=== PATIENT | female | born 1965 | race Caucasian/White ===

== ENCOUNTER 2018-10-17 11:59 | Emergency (ER) | payer OTHER ==
[2018-10-17] MEDS ORDERED: DIPH/PERTUSS(ACELL)/TETANUS VAC/PF 0.5 ML SYR (>=10YO) IM ONE ×2 (12:40→15:18)
[2018-10-17] MEDS ORDERED: OXYCODONE-ACETAMINOPHEN 5-325 MG TABLET PO ONE (12:40)
--- NOTE | 2018-10-17 12:45 | ER Document Report ---
ED Medical Screen (RME) - General Chief Complaint: Lip Injury Stated Complaint: LACERATION Time Seen by Provider: 10/17/18 12:37 Mode of Arrival: Ambulatory Information source: Patient Notes: 53-year-old female presents emergency department with a laceration past the vermilion border with maxillary pain. Denies dental pain. Patient reports she tripped and fell against the truck door. Is not sure when her last tetanus was. No change in LOC. I have greeted and performed a rapid initial assessment of this patient. A comprehensive ED assessment and evaluation of the patient, analysis of test results and completion of the medical decision making process will be conducted by additional ED providers. Dictation of this chart was performed using voice recognition software; therefore, there may be some unintended grammatical errors. - Related Data Allergies/Adverse Reactions: Penicillins Allergy (Verified 10/17/18 12:03) Physical Exam - Vital signs Vitals: Temp Pulse Resp BP Pulse Ox 97.4 F 68 18 137/75 H 98 10/17/18 12:04 10/17/18 12:04 10/17/18 12:04 10/17/18 12:04 10/17/18 12:04 Course - Vital Signs Vital signs: Temp Pulse Resp BP Pulse Ox 97.4 F 68 18 137/75 H 98 10/17/18 12:04 10/17/18 12:04 10/17/18 12:04 10/17/18 12:04 10/17/18 12:04
--- NOTE | 2018-10-17 13:23 | RADIOLOGY REPORT (SQ) ---
EXAM DESCRIPTION: FACIAL BONES COMPLETED DATE/TIME: 10/17/2018 1:00 pm REASON FOR STUDY: right upper lip lac, pain COMPARISON: None. NUMBER OF VIEWS: Three view. TECHNIQUE: Images of the facial bones acquired. LIMITATIONS: None. FINDINGS: ORBITS: No fracture. No foreign body. SINUSES: No mucosal thickening. No air fluid levels. FACIAL BONES: No fracture. OTHER: No other significant finding. IMPRESSION: NO FOREIGN BODY OR FRACTURE OF THE FACIAL BONES. TECHNICAL DOCUMENTATION: JOB ID: [id number] [employer]- All Rights Reserved Reading location - IP/workstation name: [email or web address]-
[2018-10-17] MEDS ORDERED: LIDOCAINE 1%/EPINEPHRINE INJ 20 ML VIAL INJ ONE (14:50)
--- NOTE | 2018-10-17 15:03 | ER Document Report ---
HPI - HPI Patient complains to provider of: lip laceration Time Seen by Provider: 10/17/18 12:37 Onset: Just prior to arrival Onset/Duration: Sudden Quality of pain: Achy Pain Level: 4 Context: Patient was walking, tripped and fell hitting her lip on a car door. Patient with laceration to right upper lip area. Patient denies any neck pain or loss of consciousness. No nausea or vomiting. Exacerbated by: Denies Relieved by: Denies Similar symptoms previously: No Recently seen / treated by doctor: No - ROS ROS below otherwise negative: Yes - EENT Notes: lip lac, gingival lac - NEURO Neurology: DENIES: Headache - GASTROINTESTINAL Gastrointestinal: DENIES: Nausea, Patient vomiting - REPRODUCTIVE Reproductive: DENIES: : - MUSCULOSKELETAL Musculoskeletal: DENIES: Back Pain, Neck Pain - DERM Skin Color: Normal Skin Problems: Laceration Past Medical History - General Information source: Patient - Social History Smoking Status: Never Smoker Chew tobacco use (# tins/day): No Frequency of alcohol use: Rare Drug Abuse: None Occupation: nurse Lives with: Family Family History: Reviewed & Not Pertinent Patient has suicidal ideation: No Patient has homicidal ideation: No - Medical History Medical History: Negative Renal/ Medical History: Denies: Hx Peritoneal Dialysis Past Surgical History: Reports: Hx Cholecystectomy, Hx Hysterectomy Vertical Provider Document - CONSTITUTIONAL Agree With Documented VS: Yes Exam Limitations: No Limitations General Appearance: WD/WN, No Apparent Distress - HEENT HEENT: Normocephalic Mouth Diagram: 1 - Superficial laceration to gingiva Notes: lac to right upper lip, 1.5 cm involving the vermilion border and dry vermilion border extending to fibrofatty junction - NECK Neck: Normal Inspection, Supple, Other - No midline tenderness step-off or deformity - RESPIRATORY Respiratory: Breath Sounds Normal, No Respiratory Distress - CARDIOVASCULAR Cardiovascular: Regular Rate, Regular Rhythm - BACK Back: Normal Inspection - MUSCULOSKELETAL/EXTREMETIES Musculoskeletal/Extremeties: MAEW, FROM - NEURO Level of Consciousness: Awake, Alert, Appropriate Motor/Sensory: No Motor Deficit - DERM Integumentary: Warm, Dry, Laceration - 1.5 cm laceration to right upper lip Course - Vital Signs Vital signs: Temp Pulse Resp BP Pulse Ox 97.4 F 68 18 137/75 H 98 10/17/18 12:04 10/17/18 12:04 10/17/18 12:04 10/17/18 12:04 10/17/18 12:04 Procedures - Laceration/Wound Repair Right Face Wound length (cm): 1.5 Wound's Depth, Shape: Other - Involving fibrofatty junction of lip Laceration pre-procedure: Shur-Clens applied Anesthetic type: 1% Lidocaine w/epi Volume Anesthetic (mLs): 2 - Right infraorbital block Wound explored: Clean Irrigated w/ Saline (mLs): 50 Wound Repaired With: Sutures Suture Size/Type: Other - Exterior surface of wound closed with 3 interrupted 6 oh P3 nylon sutures, laceration involving the dry vermilion border was closed 3, 5-0 chromic simple interrupted sutures. Number of Sutures: 6 Layer Closure?: Yes Deep Layer Suture Size/Type: 5:0, Other Number Deep Layer Sutures: 1 Post-procedure NV exam normal: Yes Complications: No Adult Head Front/Back picture: 1 - 1.5 cm laceration crossing the vermilion border as well as into the dry and wet vermilion border Discharge - Discharge Clinical Impression: Laceration of oral cavity Qualifiers: Encounter type: initial encounter Qualified Code(s): S01.512A - Laceration without foreign body of oral cavity, initial encounter Lip laceration Qualifiers: Encounter type: initial encounter Qualified Code(s): S01.511A - Laceration without foreign body of lip, initial encounter Condition: Stable Disposition: HOME, SELF-CARE Instructions: Facial Laceration ([facility]), Oral Laceration, Not Sutured ([facility]), Prophylactic Antibiotic ([facility]), Tetanus Immunization Given ([facility]) Additional Instructions: Return immediately for any new or worsening symptoms Followup with your primary care provider, call tomorrow to make a followup appointment Suture removal in 4 to 5 days Follow-up with plastic surgery for any cosmetic concerns of wound appearance Prescriptions: Clindamycin HCl [Cleocin Hcl] 300 mg PO QID #20 capsule
[2018-10-17 16:13] VITALS: BP 118/62
== END 2018-10-17 16:12 | disposition home or self-care (01) ==
LOC: ER 11:59
DX: S01.511A Laceration without foreign body of lip, initial encounter (principal); S01.512A Laceration without foreign body of oral cavity, initial encounter; W19.XXXA Unspecified fall, initial encounter; Y93.01 Activity, walking, marching and hiking; W22.8XXA Striking against or struck by other objects, initial encounter
CPT/HCPCS: 70150; 90715; 12051; J3490; 90471; 99283